=== PATIENT | female | born 1985 | race African-American/Black ===

== ENCOUNTER 2016-04-17 07:49 | Emergency (ER) | payer BC ==
[~2016-04-17] VITALS: Ht 165.1 cm; Wt 141.8 kg
[~2016-04-17 07:49] MED LIST: ALLEGRA180 MG PO; AMOXICILLIN 50500 MG PO; AMOXICILLIN 8751 TAB PO; BACTRIM DS 8001 TAB PO; CEFTIN500 MG PO; CEPHALEXIN500 M1 PO; DIFLUCAN150 MG PO; FLAGYL500 MG PO; FLEXERIL10 MG PO; LOMOTIL 0.025 M1 TAB PO; LORTAB 2.5/5001 TAB PO; LORTAB 5/500 501 TAB PO; NO HOME MEDICATIONS; NORCO 325 MG-51 TAB PO; NORCO 325 MG-7.1 TAB PO; PEN-VEE K500 MG PO; PERCOCET 325 MG1 TA2 PO; PREDNISONE20 MG PO; PROVENTIL0.09 MG/A1 IH; PYRIDIUM200 M1 PO; SUDAFED 12 HOU120 MG PO; ZITHROMAX Z PA250 MG PO
[2016-04-17 07:53] VITALS: BP 170/97; TEMP 98
[2016-04-17] MEDS ORDERED: GLUCOPHAGE500 MG/TAB PO (07:59)
[2016-04-17 09:31] LABS: BASO % 0.2 % (0.0-2.0); EOS # 0.3 (0.0-0.7); GRAN # 5.7 (1.4-6.5); GRAN % 57.9 % (42.2-75.2); LYMPH # 3.4 (1.2-3.4); LYMPH % 34.4 % (20.0-51.0); MEAN CELL VOLUME 75 fl (80.0-100.0); MEAN CORPUSCULAR HGB CONC 31 g/dl (33.0-37.0); MEAN PLATELET VOLUME 8.6 fl (7.4-10.4); MONO # 0.4 (0.1-0.6); MONO % 4.2 % (1.7-9.3); PLATELET COUNT 508 K/mm3 (130-400); RED BLOOD COUNT 4.61 M/mm3 (4.10-5.30); REDCELL DISTRIBUTION WIDTH-CV 17.2 % (11.5-14.5); WHITE BLOOD COUNT 9.8 K/mm3 (4.8-10.8)
[2016-04-17 09:36] LABS: HEMATOCRIT 34.7 % (37.0-47.0); HEMOGLOBIN 10.7 g/dl (12.5-16.0); MEAN CORPUSCULAR HEMOGLOBIN 23 pg (27.0-31.0)
[2016-04-17 09:40] LABS: PH 6 (5-8); URINE APPEARANCE Hazy; URINE BACTERIA Rare /hpf; URINE BILIRUBIN Negative (NEGATIVE); URINE BLOOD Negative (NEGATIVE); URINE COLOR Yellow; URINE GLUCOSE Negative (NEGATIVE); URINE KETONE Negative (NEGATIVE); URINE RBC 0-2 /hpf; URINE UROBILINOGEN Negative (NEGATIVE); URINE WBC 0-2 /hpf
[2016-04-17 09:55] LABS: ADJUSTED CALCIUM 9.9 mg/dL (8.4-10.2); CALCIUM 9.9 mg/dL (8.4-10.2); CREATININE, serum 0.59 mg/dL (0.52-1.25); POTASSIUM 3.9 mmol/L (3.4-5.0); TOTAL PROTEIN 8.2 gm/dL (6.4-8.2)
[2016-04-17 09:56] LABS: BILIRUBIN,TOTAL 0.6 mg/dL (0.0-1.0)
[2016-04-17 11:14] VITALS: PULSE 84
== END 2016-04-17 11:15 | disposition home or self-care (01) ==
LOC: COL.ER 07:49
PROVIDERS: Nurse Practitioner
DX: R07.9 Chest pain, unspecified (principal); R10.814 Left lower quadrant abdominal tenderness; E11.9 Type 2 diabetes mellitus without complications; Z79.84 Long term (current) use of oral hypoglycemic drugs

== ENCOUNTER 2016-06-12 08:58 | Emergency (ER) | payer BC ==
[~2016-06-12] VITALS: Ht 165.1 cm; Wt 136.4 kg
[~2016-06-12 08:58] MED LIST changes: +GLUCOPHAGE500 MG/TAB PO
[2016-06-12 09:03] VITALS: TEMP 98.2
[2016-06-12 09:49] VITALS: BP 150/99; PULSE 95
[2016-06-12 10:05] LABS: INFLUENZA B NEGATIVE
== END 2016-06-12 10:53 | disposition home or self-care (01) ==
LOC: COL.ER 08:58
PROVIDERS: Emergency Medicine
DX: J06.9 Acute upper respiratory infection, unspecified (principal); D57.3 Sickle-cell trait

== ENCOUNTER 2017-08-29 18:10 | Emergency (ER) | payer BC ==
[~2017-08-29] VITALS: Ht 165.1 cm; Wt 131.8 kg
[2017-08-29 18:12] VITALS: TEMP 98.2
[2017-08-29] MEDS ORDERED: CLEOCIN HCL300 MG PO (18:55)
[2017-08-29] MEDS ORDERED: PERCOCET 325 MG1 TA2 PO (18:55)
[2017-08-29] MEDS ORDERED: IBU800 M1 PO (20:02)
[2017-08-29 20:03] VITALS: BP 169/102; PULSE 88
== END 2017-08-29 20:08 | disposition home or self-care (01) ==
LOC: COL.ER 18:10
DX: K08.89 Other specified disorders of teeth and supporting structures (principal); I10 Essential (primary) hypertension; E66.9 Obesity, unspecified
CPT/HCPCS: J1885

== ENCOUNTER 2018-02-17 10:35 | Emergency (ER) | payer BC ==
[~2018-02-17] VITALS: Ht 165.1 cm; Wt 137.3 kg
[~2018-02-17 10:35] MED LIST changes: +CLEOCIN HCL300 MG PO; +IBU800 M1 PO
[2018-02-17 10:43] VITALS: BP 175/83; TEMP 98.2
[2018-02-17] MEDS ORDERED: PRENATAL-U1 CAP PO (11:58)
[2018-02-17 12:56] LABS: BASO % 0.2 % (0.0-2.0); EOS # 0.3 (0.0-0.7); EOS % 3.6 % (0-4.0); GRAN # 4.9 (1.4-6.5); GRAN % 52.3 % (42.2-75.2); HEMOGLOBIN 11.2 g/dl (12.5-16.0); LYMPH # 3.7 (1.2-3.4); LYMPH % 39.3 % (20.0-51.0); MEAN CELL VOLUME 76 fl (80.0-100.0); MEAN CORPUSCULAR HEMOGLOBIN 24 pg (27.0-31.0); MEAN CORPUSCULAR HGB CONC 32 g/dl (33.0-37.0); MEAN PLATELET VOLUME 8.8 fl (7.4-10.4); MONO # 0.4 (0.1-0.6); MONO % 4.4 % (1.7-9.3); PLATELET COUNT 493 K/mm3 (130-400); RED BLOOD COUNT 4.67 M/mm3 (4.10-5.30); REDCELL DISTRIBUTION WIDTH-CV 15.8 % (11.5-14.5)
[2018-02-17 12:59] LABS: HEMATOCRIT 35.5 % (37.0-47.0)
[2018-02-17 13:06] LABS: ALANINE AMINOTRANSFERASE 15 U/L (9-52); ALBUMIN 3.9 gm/dL (3.5-5.0); ALKALINE PHOSPHATASE 133 U/L (50-136); ANION GAP 5 mmol/L (7-16); AST,SGOT 20 U/L (15-37); BILIRUBIN,TOTAL 0.3 mg/dL (0.0-1.0); BLOOD UREA NITROGEN 8 mg/dL (7-17); C-REACTIVE PROTEIN 2.8 mg/dL (0.0-0.9); CALCIUM 9.3 mg/dL (8.4-10.2); CARBON DIOXIDE 29 mmol/L (22-30); CHLORIDE 109 mmol/L (98-107); CREATININE, serum 0.57 mg/dL (0.52-1.25); GLUCOSE 85 mg/dL (74-106); POTASSIUM 3.7 mmol/L (3.4-5.0); SODIUM 143 mmol/L (137-145); TOTAL PROTEIN 7.9 gm/dL (6.4-8.2)
[2018-02-17 13:15] LABS: TROPONIN-I < 0.012 ng/mL (0.000-0.034)
[2018-02-17 14:41] VITALS: PULSE 72
== END 2018-02-17 14:42 | disposition home or self-care (01) ==
LOC: COL.ER 10:35
PROVIDERS: Physician Assistant
DX: G43.909 Migraine, unspecified, not intractable, without status migrainosus (principal); R07.89 Other chest pain
CPT/HCPCS: J1200; J1885; J2765; J7030

== ENCOUNTER 2019-03-31 14:13 | Emergency (ER) | payer BC ==
[~2019-03-31] VITALS: Ht 165.1 cm; Wt 140.0 kg
[~2019-03-31 14:13] MED LIST changes: +PRENATAL-U1 CAP PO
[2019-03-31 14:39] VITALS: TEMP 98.1
[2019-03-31] MEDS ORDERED: GLUCOPHAGE500 MG/TAB PO (17:17)
[2019-03-31 18:00] LABS: STREP SCREEN NEGATIVE
[2019-03-31 19:27] VITALS: BP 157/88; PULSE 96
== END 2019-03-31 19:30 | disposition home or self-care (01) ==
LOC: COL.ER 14:13
PROVIDERS: Nurse Practitioner
DX: J06.9 Acute upper respiratory infection, unspecified (principal); E11.9 Type 2 diabetes mellitus without complications; I10 Essential (primary) hypertension; Z88.5 Allergy status to narcotic agent; Z79.84 Long term (current) use of oral hypoglycemic drugs
CPT/HCPCS: J8540

== ENCOUNTER 2019-12-23 14:37 | Emergency (ER) | payer BC ==
[~2019-12-23] VITALS: Ht 165.1 cm; Wt 136.4 kg
[2019-12-23 15:07] VITALS: TEMP 98.3
[2019-12-23] MEDS ORDERED: PERCOCET 325 MG1 TA2 PO (17:02)
[2019-12-23] MEDS ORDERED: CLEOCIN HCL300 MG PO (17:02)
[2019-12-23] MEDS ORDERED: PERIDEX (CHLOR480 ML MM (17:04)
[2019-12-23] MEDS ORDERED: NORVASC 5MG5 MG/TAB PO (17:19)
[2019-12-23 18:02] VITALS: BP 176/79; PULSE 94
== END 2019-12-23 18:07 | disposition home or self-care (01) ==
LOC: COL.ER 14:37
DX: K04.7 Periapical abscess without sinus (principal); I10 Essential (primary) hypertension; Z88.5 Allergy status to narcotic agent

== ENCOUNTER 2020-02-08 14:12 | Emergency (ER) | payer BC ==
[~2020-02-08] VITALS: Ht 165.1 cm; Wt 136.4 kg
[~2020-02-08 14:12] MED LIST changes: +NORVASC 5MG5 MG/TAB PO; +PERIDEX (CHLOR480 ML MM
[2020-02-08 14:21] VITALS: TEMP 98.1
[2020-02-08] MEDS ORDERED: GLUCOPHAGE500 MG/TAB PO (14:37)
[2020-02-08] MEDS ORDERED: IBU600 MG PO (15:19)
[2020-02-08] MEDS ORDERED: PERCOCET 325 MG1 TA2 PO (15:19)
[2020-02-08 15:41] VITALS: BP 171/90; PULSE 74
== END 2020-02-08 15:42 | disposition home or self-care (01) ==
LOC: COL.ER 14:12
DX: M25.572 Pain in left ankle and joints of left foot (principal); E11.9 Type 2 diabetes mellitus without complications; Z79.84 Long term (current) use of oral hypoglycemic drugs; Z88.6 Allergy status to analgesic agent

== ENCOUNTER 2022-04-24 15:56 | Emergency (ER) | payer BC ==
[~2022-04-24] VITALS: Ht 165.1 cm; Wt 148.0 kg
[~2022-04-24 15:56] MED LIST changes: +IBU600 MG PO; +ZOFRAN ODT8 MG PO
[2022-04-24 18:07] LABS: BASO % 0.2 % (0.0-2.0); EOS # 0.1 K/mm3 (0.0-0.7); EOS % 0.7 % (0.0-4.0); GRAN # 10.2 K/mm3 (1.4-6.5); GRAN % 84.1 % (42.2-75.2); HEMOGLOBIN 11.1 g/dl (12.5-16.0); LYMPH # 1.5 K/mm3 (1.2-3.4); LYMPH % 12.5 % (20.0-51.0); MEAN CELL VOLUME 78 fl (80.0-100.0); MEAN CORPUSCULAR HEMOGLOBIN 24 pg (27-31); MEAN CORPUSCULAR HGB CONC 30 g/dl (33.0-37.0); MEAN PLATELET VOLUME 8.8 fl (7.4-10.4); MONO # 0.3 K/mm3 (0.1-0.6); MONO % 2.1 % (1.7-9.3); PLATELET COUNT 669 K/mm3 (130-400); RED BLOOD COUNT 4.71 M/mm3 (4.10-5.30)
[2022-04-24 18:09] LABS: HEMATOCRIT 36.7 % (37.0-47.0)
[2022-04-24 18:22] LABS: ALBUMIN 3.5 gm/dL (3.5-5.0); BILIRUBIN,TOTAL 0.6 mg/dL (0.2-1.2); CALCIUM 10.2 mg/dL (8.4-10.2); CREATININE, serum 0.72 mg/dL (0.57-1.11); POTASSIUM 4.5 mmol/L (3.5-4.5); TOTAL PROTEIN 8.2 gm/dL (6.2-8.1)
[2022-04-24 18:28] LABS: TROPONIN-I 0.021 ng/mL (0.00-0.033)
[2022-04-24 21:50] VITALS: BP 153/93; PULSE 99; TEMP 98.1
== END 2022-04-24 21:50 | disposition home or self-care (01) ==
LOC: COL.ER 15:56
PROVIDERS: Physician Assistant
DX: I11.0 Hypertensive heart disease with heart failure (principal); I50.9 Heart failure, unspecified; R79.1 Abnormal coagulation profile; E11.9 Type 2 diabetes mellitus without complications; Z79.84 Long term (current) use of oral hypoglycemic drugs; Z79.899 Other long term (current) drug therapy
CPT/HCPCS: Q9967

== ENCOUNTER → 2022-04-25 | Outpatient (CLI) | payer BC | LOC: COL.VAS 05:21 | DX: I51.7 Cardiomegaly (principal); I34.0 Nonrheumatic mitral (valve) insufficiency ==

== ENCOUNTER 2023-09-08 09:30 | Day surgery (SDC) | payer BC ==
[~2023-09-08] VITALS: Ht 165.1 cm; Wt 149.1 kg
[~2023-09-08 09:30] MED LIST changes: +Ondansetron 4 MG/2 ML VIAL IV PRN
[2023-09-08] MEDS ORDERED: VITAMIN D 50,1.25 MG PO (10:40)
[2023-09-08] MEDS ORDERED: WEGOVY0.25 MG/0. INJ (10:41)
[2023-09-08] MEDS ORDERED: TESSALON P100 MG/CAP PO (10:42)
[2023-09-08] MEDS ORDERED: K-TAB20 PO (10:43)
[2023-09-08] MEDS ORDERED: COZAAR100 MG PO (10:44)
[2023-09-08] MEDS ORDERED: ALDACTONE 25MG25 M1 PO (10:45)
[2023-09-08] MEDS ORDERED: LASIX 20MG TABL20 MG PO (10:47)
[2023-09-08] MEDS ORDERED: [UNRECOGNIZED DRUG - OTHER] PO (10:47)
[2023-09-08] MEDS ORDERED: APRESOLINE 10MG10 MG PO (10:48)
[2023-09-08] MEDS ORDERED: Lidocaine PF 2% (20 MG/ML) 5 ML VIAL ONE (11:41)
[2023-09-08 12:25] VITALS: BP 166/98; PULSE 88
[2023-09-08 12:40] VITALS: BP 156/95; PULSE 85
[2023-09-08 13:00] VITALS: BP 176/94; PULSE 85
[2023-09-08 15:43] VITALS: BP 176/95; PULSE 85
--- NOTE | 2023-09-08 15:50 | NUR ---
1225 PATIENT RETUR[place] [facility] [place]. PT AWAKE AND ALERT. RESPIRATIONS UNLABORED. AMBULATED TO RECLINER CHAIR WITH 2:1 SBA. PT DENIES NAUSEA OR ABDOMINAL PAIN. HOOKED UP TO MONITOR AND VS OBTAINED. CALL LIGHT AT SIDE AND GODMOTHER KAYLI PRESENT. 1235 PATIENT TOLERATING CRACKERS AND MUFFIN WITHOUT NAUSEA OR DIFFICULTY SWALLOWING. 1245 DR. TOTH IN ROOM SPEAKING WITH PATIENT. 1300 D/C INSTRUCTIONS REVIEWED WITH PATIENT. PT VERBALIZED UNDERSTANDING AND A COPY OF INSTRUCTIONS PROVIDED IN D/C FOLDER. 1315 PATIENT DRESSES SELF. 1345 PATIENT DISCHARGED FROM UNIT VIA W/C TO A PERSONAL VEHICLE. PT LEFT HOSPITAL IN STABLE CONDITION.
== END 2023-09-08 13:45 | disposition home or self-care (01) ==
LOC: SDCO 09:30
DX: K29.30 Chronic superficial gastritis without bleeding (principal); G47.33 Obstructive sleep apnea (adult) (pediatric); E66.01 Morbid (severe) obesity due to excess calories; Z68.43 Body mass index [BMI] 50.0-59.9, adult
CPT/HCPCS: J2704

== ENCOUNTER 2023-12-27 23:50 | Emergency (ER) | payer BC ==
[~2023-12-27] VITALS: Ht 165.1 cm; Wt 135.5 kg
[~2023-12-27 23:50] MED LIST changes: +ALDACTONE 25MG25 M1 PO; +APRESOLINE 10MG10 MG PO; +COZAAR100 MG PO; +K-TAB20 PO; +LASIX 20MG TABL20 MG PO; -Ondansetron 4 MG/2 ML VIAL IV PRN; +TESSALON P100 MG/CAP PO; +VITAMIN D 50,1.25 MG PO; +WEGOVY0.25 MG/0. INJ; +[UNRECOGNIZED DRUG - OTHER] PO
[2023-12-27 23:55] VITALS: TEMP 98.3
[2023-12-28] MEDS ORDERED: NS 1,000 ML IV ONE ×2 (00:15→02:00)
[2023-12-28] MEDS ORDERED: Ondansetron 4 MG/2 ML VIAL IV ONE ×2 (00:15→02:45)
[2023-12-28 01:25] LABS: BASO % 0.2 % (0.0-2.0); EOS # 0.1 K/mm3 (0.0-0.7); EOS % 0.8 % (0.0-4.0); GRAN # 7.8 K/mm3 (1.4-6.5); GRAN % 72.8 % (42.2-75.2); HEMOGLOBIN 10.5 g/dl (12.5-16.0); LYMPH # 2.1 K/mm3 (1.2-3.4); LYMPH % 19.4 % (20.0-51.0); MEAN CELL VOLUME 77 fl (80.0-100.0); MEAN CORPUSCULAR HEMOGLOBIN 25 pg (27-31); MEAN CORPUSCULAR HGB CONC 33 g/dl (33.0-37.0); MEAN PLATELET VOLUME 9.1 fl (7.4-10.4); MONO # 0.7 K/mm3 (0.1-0.6); MONO % 6.5 % (1.7-9.3); PLATELET COUNT 475 K/mm3 (130-400); RED BLOOD COUNT 4.14 M/mm3 (4.10-5.30); REDCELL DISTRIBUTION WIDTH-CV 15.9 % (11.5-14.5)
[2023-12-28 01:46] LABS: ALBUMIN 3.1 g/dL (3.5-5.0); BILIRUBIN,TOTAL 0.3 mg/dL (0.2-1.2); CALCIUM 9.3 mg/dL (8.4-10.2); CREATININE, serum 1.54 mg/dL (0.57-1.11); POTASSIUM 3.2 mEq/L (3.5-4.5); TOTAL PROTEIN 7.2 g/dl (6.2-8.1)
[2023-12-28] MEDS ORDERED: Magnesium Oxide 400 MG TAB PO ONE (02:15)
[2023-12-28] MEDS ORDERED: diphenhydrAMINE 50 MG/ML 1 ML VIAL IV ONE (02:45)
[2023-12-28 02:49] LABS: COLLECTION METHOD CLEAN CATCH
[2023-12-28 02:59] LABS: PH 5.5 (5.0-8.5); URINE APPEARANCE CLOUDY (CLEAR/HAZY); URINE BLOOD 1+ (NEGATIVE); URINE COLOR YELLOW (YELLOW); URINE GLUCOSE NEGATIVE (NEGATIVE); URINE KETONE 3+ (NEGATIVE); URINE NITRATE NEGATIVE (NEGATIVE); URINE PROTEIN(semi-quant) 2+ (NEGATIVE); URINE UROBILINOGEN 0.2 E.U/dL (0.2-1.0)
[2023-12-28] MEDS ORDERED: NS 50 ML IV SCH (03:37)
[2023-12-28] MEDS ORDERED: Iohexol 300 - 100 ML VIAL IV ONE (03:37)
[2023-12-28] MEDS ORDERED: CEPHALEXIN500 M1 PO (04:23)
[2023-12-28] MEDS ORDERED: cefTRIAXone 2 G in Water For Injection,Sterile 20 ML IV ONE (04:30)
[2023-12-28] MEDS ORDERED: ZOFRAN ODT4 MG PO (07:11)
[2023-12-28] MEDS ORDERED: Home Ondansetron ODT 4 MG #2 ODT/PACK PO ONE (07:15)
[2023-12-28 07:20] VITALS: BP 197/96; PULSE 54
== END 2023-12-28 07:21 | disposition home or self-care (01) ==
LOC: COL.ER 23:50
PROVIDERS: Emergency Medicine
DX: R11.2 Nausea with vomiting, unspecified (principal); N39.0 Urinary tract infection, site not specified
CPT/HCPCS: J0696; J1200; J2405; J2765; J7030; Q9967